=== PATIENT | female | born 1945 | race Caucasian/White ===

== ENCOUNTER 2024-07-12 11:27 | Outpatient (AMB) | payer MEDICARE, SELFPAY ==
[2024-07-12 11:31] VITALS: BP 128/58; PULSE 80; O2SAT 96; BMI 28.7
--- NOTE | 2024-07-12 11:31 | MHC.OFFVIS ---
Vital Signs 07/12/24 11:31 Height 5 ft 2 in Weight 157 lb BMI 28.7 BP 128/58 L Blood Pressure Location Lt brachial Position Sitting Pulse 80 Pulse Source Pulse Oximeter Pulse Oximetry (%) 96 Oxygen Delivery Method Room Air Intake Visit Reasons: Right Lower Quadrant Pain Allergies codeine Allergy (Severe, Verified 07/12/24 11:32) Chest Pain Medication List - Last Reconciled 07/12/24 by Ольга Rick acetaminophen 650 mg PO Q6H PRN albuterol sulfate 2.5 mg inhalation Q6H albuterol sulfate 90 mcg/actuation 2 puffs inhalation Q6H PRN apixaban (Eliquis) 5 mg PO BID atorvastatin 80 mg PO DAILY docusate sodium 50 mg PO DAILY dulaglutide (Trulicity) 0.75 mg subcut QWEEK furosemide 40 mg PO DAILY glipizide 10 mg PO BID hydrocodone-acetaminophen 5-325 mg 1 tab PO BID PRN ipratropium-albuterol 0.5 mg-3 mg(2.5 mg base)/3 mL 3 mL inhalation Q6H PRN L.rhamnosus-B.animalis 3 billion cell ([employer]) caps PO losartan 100 mg PO DAILY magnesium oxide 400 mg PO TID mirtazapine 15 mg PO DAILY nifedipine ER 30 mg PO DAILY omeprazole 20 mg PO DAILY pregabalin 25 mg PO TID propranolol 10 mg PO ONCE PRN HPI Comments Details: Cierra is a very pleasant 79-year-old female who presents to the office today, accompanied by her granddaughter, for evaluation management of her right groin pain Endorses 1.5 years of pain to the right groin associated with pain over right PSIS. Pain occasionally will radiate down to the knee but does not radiate to the foot She states his pain started after cardiology attempted to insert MEMS device through her right femoral artery. 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 She required a second procedure to fix the pseudoaneurysm. After these procedures she was left with residual pain in that area. Pain today is rated as a 6/10, intermittent and worse throughout the day. Pain is exacerbated by standing, sitting, walking She has been taking Tylenol with minimal improvement. Currently on blood thinners therefore she is unable to take nonsteroidal anti-inflammatory medications. Over the last year she has completed physical therapy twice with no improvement. She continues home exercise program. Currently prescribed Lyrica which provides some relief but pain persists. In terms of muscle damage condition is described as aching, tiring, cramping, squeezing, throbbing Pain is negatively impacting patient's enjoyment of life, general activity, mood, normal work, recreational activities, walking Review of Systems Const All systems reviewed & are unremarkable except as noted in HPI and below Physical Exam Vital Signs: Last Vital Signs Pulse 80 07/12/24 11:31 BP 128/58 L 07/12/24 11:31 Pulse Ox 96 07/12/24 11:31 Oxygen Delivery Method Room Air 07/12/24 11:31 BMI result Body Mass Index 28.7 General: awake, alert, oriented. Answers questions appropriately. Fully engaged in examination. Skin: warm, dry, intact HEENT: Normocephalic. Hearing intact. Cardiac: External chest normal in appearance. Respiratory: No cough, audible wheezing or stridor. Abdomen: without gross distension. MS: No obvious swelling or deformities. Able to transition from sit to stand unassisted. Ambulates with bilaterally normal heel strike and toe off Bilateral lower extremity strength 5/5 Tenderness over right PSIS Right SI: [place] positive, thigh thrust positive, SI compression positive Nontender over midline lumbar vertebrae and lower paraspinal muscles SLR negative bilaterally Some discomfort with internal rotation of the right hip Neurological: Oriented to person, place, time and situation. Thought process intact. Ambulates with the use of a Rollator walker Psychiatric: Appropriate mood and affect. Good judgment and insight. Assessment & Plan Assessment & Plan (1) Sacroiliac joint dysfunction of right side: Code(s): M53.3 - Sacrococcygeal disorders, not elsewhere classified Category: Medical Plan X-ray results have been requested from [facility] Continue with Tylenol as needed Patient has exhausted conservative therapy including PT, home exercise program, [id number] medications, prescription medications all without improvement of her symptoms. Discussed options for treatment including diagnostic interventional testing, epidural steroid injections, peripheral nerve stimulation with Sprint, RFA and more permanent neuromodulation. Will schedule for fluoroscopy guided right diagnostic sacroiliac joint injection with local anesthetic. All questions and concerns have been answered and patient agrees with the plan. Follow up after injections and sooner if needed. Coding Level of Care Code New Pt Level 4 (31918) Complex EM visit Add On G2211 Diagnoses Sacroiliac joint dysfunction of right side M53.3
== END 2024-07-12 12:12 | disposition home or self-care (01) ==
LOC: HO.PMC 11:27
PROVIDERS: PCP Family Medicine; Referring Provider Family Medicine; Visit Provider Registered Nurse Emergency
DX: M53.3 Sacrococcygeal disorders, not elsewhere classified (principal)
CPT/HCPCS: 99204; G2211

== ENCOUNTER → 2024-07-12 11:27 | Outpatient (BNVA) | payer MEDICARE, SELFPAY | PROVIDERS: PCP Family Medicine; Referring Provider Family Medicine; Visit Provider Registered Nurse Emergency | DX: M53.3 Sacrococcygeal disorders, not elsewhere classified (principal); Z79.899 Other long term (current) drug therapy | CPT/HCPCS: 99202 ==

== ENCOUNTER 2024-08-01 06:25 | Outpatient (REF) | payer MEDICARE, SELFPAY | END 2024-08-01 06:26 | disposition home or self-care (01) | LOC: CF 06:25 | PROVIDERS: Visit Provider Anesthesiology | DX: M53.3 Sacrococcygeal disorders, not elsewhere classified (principal) | CPT/HCPCS: 27096; J2003; J2795; Q9967 ==

== ENCOUNTER 2024-08-01 12:56 | Outpatient (AMB) | payer MEDICARE, SELFPAY ==
[2024-08-01 12:55] VITALS: BP 103/56; PULSE 71; RESP 14; O2SAT 97
--- NOTE | 2024-08-01 13:02 | A.OFFVIS_ITS ---
Vital Signs 08/01/24 12:55 08/01/24 13:38 BP 103/56 L 104/54 L Blood Pressure Location Lt brachial Lt brachial Position Sitting Sitting Respiration 14 15 Pulse 71 72 Pulse Source Pulse Oximeter Pulse Oximeter Pulse Oximetry (%) 97 94 Oxygen Delivery Method Room Air Room Air Comment Pre-op Post-op Intake Visit Reasons: RIGHT DIAGNOSTIC SIJ INJECTION Allergies codeine Allergy (Severe, Verified 07/12/24 11:32) Chest Pain Physical Exam Vital Signs: Last Vital Signs Pulse 72 08/01/24 13:38 Resp 15 08/01/24 13:38 BP 104/54 L 08/01/24 13:38 Pulse Ox 94 08/01/24 13:38 Oxygen Delivery Method Room Air 08/01/24 13:38 Assessment & Plan Assessment & Plan (1) Sacroiliac joint dysfunction of right side: Code(s): M53.3 - Sacrococcygeal disorders, not elsewhere classified Category: Medical Plan: Diagnostic right sacroiliac joint injection Informed consent was explained thoroughly to the patient.? All questions about benefits and risks for the procedure were answered. Patient came to the operating room and was positioned prone on the operating table with the pillow under the pelvis.? The lower back and buttocks of the patient were prepped with ChloraPrep prepped and draped with sterile utility towels.? Sterilely draped C-arm was brought over the operating field and sq picture of patient's pelvis was demonstrated on the screen.? For the right joint tilting C-arm contralateral to the site of the joint the most posterior portion of the joints was superimposed with anterior silhouette of the joint.? Skin was injected in the projection of the joint slightly medial to the location of the joint with 25 gauge 1/2 inch needle using local lidocaine 2% . After that 22 gauge 3 and 1/2 inch needle was driven to the right joint in tunne l vision fashion.? When needle entered the joint capsule injection of the contrast was performed demonstrating intra-articular and minimally periarticular spread of the contrast.? After that 4 cc. of ropivacaine 0.5% was injected into each joint.? Upon completion of the injections the needles were removed and pressure were applied.? Sterile dressing was applied.? Upon completion of the injection patient was taken outside of the operating room to the recovery room where recovered uneventfully. Plan X-ray results have been requested from [facility] Continue with Tylenol as needed Patient has exhausted conservative therapy including PT, home exercise program, [id number] medications, prescription medications all without improvement of her symptoms. Discussed options for treatment including diagnostic interventional testing, epidural steroid injections, peripheral nerve stimulation with Sprint, RFA and more permanent neuromodulation. Will schedule for fluoroscopy guided right diagnostic sacroiliac joint injection with local anesthetic. All questions and concerns have been answered and patient agrees with the plan. Follow up after injections and sooner if needed. Orders: Orders FL guidance in treatment room 08/01/24 M53.3 - Sacrococcygeal disorders, not elsewhere classified Coding Level of Care Code Procedure Only Diagnoses Sacroiliac joint dysfunction of right side M53.3
[2024-08-01 13:38] VITALS: BP 104/54; PULSE 72; RESP 15; O2SAT 94
== END 2024-08-01 13:37 | disposition home or self-care (01) ==
LOC: HO.PMCPRC 12:56
PROVIDERS: PCP Family Medicine; Visit Provider Anesthesiology
DX: M53.3 Sacrococcygeal disorders, not elsewhere classified (principal)
CPT/HCPCS: 27096

== ENCOUNTER 2024-08-11 12:54 | Outpatient (AMB) | payer MEDICARE, SELFPAY ==
[2024-08-11 13:16] VITALS: BP 110/55; PULSE 83; O2SAT 98; BMI 28.2
--- NOTE | 2024-08-11 13:16 | A.OFFVIS_ITS ---
Vital Signs 08/11/24 13:16 Height 5 ft 2 in Weight 154 lb BMI 28.2 BP 110/55 L Blood Pressure Location Lt brachial Position Sitting Pulse 83 Pulse Source Pulse Oximeter Pulse Oximetry (%) 98 Oxygen Delivery Method Room Air Intake Visit Reasons: RIGHT DIAGNOSTIC SIJ INJECTION Intake Note: Pain today 0/10 Email Marketer Required: No Accompanied by: Self / Same As Patient Allergies codeine Allergy (Severe, Verified 08/11/24 13:16) Chest Pain HPI Comments Details: Patient presents back to the office today for follow-up, 10 days status post right diagnostic sacroiliac joint injection Patient reports continued 100% pain relief since the injection with improvement in functional mobility Denies any untoward effects Would like to proceed with therapeutic injection. She is requesting Ativan prior to the procedure as she states that the diagnostic injection was very uncomfortable. Prior: Cierra is a very pleasant 79-year-old female who presents to the office today, accompanied by her granddaughter, for evaluation management of her right groin pain Endorses 1.5 years of pain to the right groin associated with pain over right PSIS. Pain occasionally will radiate down to the knee but does not radiate to the foot She states his pain started after cardiology attempted to insert MEMS device through her right femoral artery. 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 She required a second procedure to fix the pseudoaneurysm. After these procedures she was left with residual pain in that area. Pain today is rated as a 6/10, intermittent and worse throughout the day. Pain is exacerbated by standing, sitting, walking She has been taking Tylenol with minimal improvement. Currently on blood thinners therefore she is unable to take nonsteroidal anti-inflammatory medications. Over the last year she has completed physical therapy twice with no improvement. She continues home exercise program. Currently prescribed Lyrica which provides some relief but pain persists. In terms of muscle damage condition is described as aching, tiring, cramping, squeezing, throbbing Pain is negatively impacting patient's enjoyment of life, general activity, mood, normal work, recreational activities, walking Review of Systems Const All systems reviewed & are unremarkable except as noted in HPI and below Physical Exam Vital Signs: Last Vital Signs Pulse 83 08/11/24 13:16 BP 110/55 L 12/06/24 13:16 Pulse Ox 98 08/11/24 13:16 Oxygen Delivery Method Room Air 08/11/24 13:16 BMI result Body Mass Index 28.2 General: awake, alert, oriented. Answers questions appropriately. Fully engaged in examination. Skin: warm, dry, intact HEENT: Normocephalic. Hearing intact. Cardiac: External chest normal in appearance. Respiratory: No cough, audible wheezing or stridor. Abdomen: without gross distension. MS: No obvious swelling or deformities. Able to transition from sit to stand unassisted. Ambulates with bilaterally normal heel strike and toe off Neurological: Oriented to person, place, time and situation. Thought process intact. Ambulates with the use of a Rollator walker Psychiatric: Appropriate mood and affect. Good judgment and insight. Assessment & Plan Assessment & Plan (1) Sacroiliac joint dysfunction of right side: Code(s): M53.3 - Sacrococcygeal disorders, not elsewhere classified Category: Medical Plan Patient presents the office today for follow-up, 10 days status post diagnostic right sacroiliac joint injection She reports continued 100% pain relief with improvement in functional ability since the injection Patient has exhausted conservative therapy including PT, home exercise program, [id number] medications, prescription medications all without improvement of her symptoms. Will schedule for fluoroscopy guided right therapeutic sacroiliac joint injection with local anesthetic. Patient would like Ativan for this procedure, this will be sent to her pharmacy with instructions to take 30 minutes prior to arrival. All questions and concerns have been answered and patient agrees with the plan. Follow up after injection, sooner if needed. Coding Level of Care Code Est Pt Level 3 (49712) Complex EM visit Add On G2211 Diagnoses Sacroiliac joint dysfunction of right side M53.3
--- OUTSIDE RECORDS SUMMARY | 2024-08-16 09:00 | XMS_ITS | Clinical Summary ---
Author Organization Unknown Care Team Providers Care Flatbed Driver Name Role Phone DAWIT MADDEN MD, ADILIA Unavailable U thomas SONG PT, STEVE Unavailable Unavailable CELSO JUDGE'S CLERK, STEVE Unavailable Unavailable Payers Payer Name Policy Type Policy Number Effective Date Expira tion Date MEDICARE.[facility].PDGM [id number] Problems Condition Name Condition Details Condition Category Status Onset Date Resolution Date Last Treatment Date Treating Clinician Comments POLYOSTEOART HRITIS, UNSPECIFIED Active 04-14 00:00: 00 ESSENTIAL (PRIMARY) HYPERTENSION Active 04-14 00:00: 00 CHRONIC OBSTRUCTIVE PULMONARY DISEASE, UNSPECIFIED Active 04-14 00:00: 00 ANXIETY DISORDER, UNSPECIFIED Active 04-14 00:00: 00 MAJOR DEPRESSIVE DISORDER, RECURRENT, UNSPECIFIED Active 04-14 00:00: 00 UNSPECIFIED ATRIAL FIBRILLATION Active 04-14 00:00: 00 PULMONARY HYPERTENSION , UNSPECIFIED Active 04-14 00:00: 00 POLYMYALGIA RHEUMATICA Active 04-14 00:00: 00 AGE-RELATED OSTEOPOROSIS W/O CURRENT PATHOLOGICAL FRACTURE Active 04-14 00:00: 00 HYPOMAGNESEM IA Active 04-14 00:00: 00 HYPERLIPIDEM IA, UNSPECIFIED Active 04-14 00:00: 00 GASTRO-ESOPH AGEAL REFLUX DISEASE WITHOUT ESOPHAGITIS Active 04-14 00:00: 00 HISTORY OF FALLING Active 04-14 00:00: 00 PRISON (CURRENT) USE OF ORAL HYPOGLYCEMIC DRUGS Active 04-14 00:00: 00 BOOK AGENT (CURRENT) USE OF ANTICOAGULAN TS Active 04-14 00:00: 00 LNG TRM (CRNT) USE INJECTABLE NON-INSULIN ANTIDIABETIC DRUGS Active 04-14 00:00: 00 PERSONAL HISTORY OF MALIGNANT NEOPLASM OF LARGE INTESTINE Active 04-14 00:00: 00 ACQUIRED ABSENCE OF OTHER SPECIFIED PARTS OF DIGESTIVE TRACT Active 04-14 00:00: 00 Allergies, Adverse Reactions, Alerts Allergy Name Allergy Type Status Severity Reaction(s) Onset Date Inactive Date Treating Clinician Comments TYLENOL-C ODEINE #3 Propensity to adverse reactions Active 2024-04 21:21:2 7 Medications Ordered Medication Name Filled Medication Name Start Date Stop Date Current Medication? Ordering Clinician Indication Dosage Frequency Signature (SIG) Comments Components OneTouch Ultra Test strips 04-05 00:00: 00 Yes [id number] DIABETES Per instruc tions TWICE DAILY DIRECTED Per instructio ns TWICE DAILY DIRECTED (route: miscellane ous) Med Classific ation: Medical Supplies and Durable Medical Equipment (DME) OneTouch UltraSoft 2 Lancet 30 gauge 04-05 00:00: 00 Yes [id number] DIABETES Per instruc tions TO TEST BLOOD SUGAR TWICE DAILY Per instructio ns TO TEST BLOOD SUGAR TWICE DAILY (route: miscellane ous) Med Classific ation: Medical Supplies and Durable Medical Equipment (DME) hydrocodone 5 mg-acetamin ophen 325 mg tablet 04-01 00:00: 00 Yes [id number] PAIN Per instruc tions TWICE DAILY FOR 14 DAYS Per instructio ns TWICE DAILY FOR 14 DAYS (route: oral) Med Classific ation: Analgesic , Anti-infl ammatory or Antipyret ic atorvastati n 80 mg tablet 03-30 00:00: 00 Yes [id number] HLD Per instruc tions EVERY DAY Per instructio ns EVERY DAY (route: oral) Med Classific ation: Cardiovas cular Therapy Agents diltiazem CD 300 mg capsule,ext ended release 24 hr 03-30 00:00: 00 Yes [id number] HR CONTROL Per instruc tions EVERY DAY Per instructio ns EVERY DAY (route: oral) Med Classific ation: Cardiovas cular Therapy Agents magnesium oxide 400 mg (241.3 mg magnesium) tablet 03-27 00:00: 00 Yes [id number] SUPPLEMENT Per instruc tions THREE TIMES DAILY Per instructio ns THREE TIMES DAILY (route: oral) Med Classific ation: Electroly te Balance-N utritiona l Products propranolol 10 mg tablet 03-27 00:00: 00 Yes [id number] PANIC ATTACKS Per instruc tions EVERY 8 HOURS NEEDED Per instructio ns EVERY 8 HOURS NEEDED (route: oral) Med Classific ation: Cardiovas cular Therapy Agents mirtazapine 15 mg tablet 03-21 00:00: 00 Yes [id number] DEPRESSION Per instruc tions EVERY DAY Per instructio ns EVERY DAY (route: oral) Med Classific ation: Central Nervous System Agents Trulicity 1.5 mg/0.5 mL subcutaneou s pen injector 03-21 00:00: 00 Yes [id number] DIABETES Per instruc tions EVERY WEEK Per instructio ns EVERY WEEK (route: subcutaneo us) Med Classific ation: Endocrine albuterol sulfate 2.5 mg/3 mL (0.083 %) solution for nebulizatio n 04-24 00:00: 00 Yes [id number] COPD 3 mL EVERY 6 HOURS 3 mL EVERY 6 HOURS (route: inhalation ) Med Classific ation: Respirato ry Therapy Agents albuterol sulfate HFA 90 mcg/actuati on aerosol inhaler 04-24 00:00: 00 Yes [id number] COPD 2 puff EVERY 4 HOURS 2 puff EVERY 4 HOURS (route: inhalation ) Med Classific ation: Respirato ry Therapy Agents docusate sodium 50 mg capsule 04-24 00:00: 00 Yes [id number] CONSTIPATIO N 1 capsule EVERY OTHER DAY 1 capsule EVERY OTHER DAY (route: oral) Med Classific ation: Gastroint estinal Therapy Agents Eliquis 5 mg tablet 04-24 00:00: 00 Yes [id number] ANTICOAGULA NT 1 tablet 2 TIMES DAILY 1 tablet 2 TIMES DAILY (route: oral) Med Classific ation: Hematolog ical Agents furosemide 40 mg tablet 04-24 00:00: 00 Yes [id number] DIURETIC 1 tablet DAILY 1 tablet DAILY (route: oral) Med Classific ation: Cardiovas cular Therapy Agents glipizide 10 mg tablet 04-24 00:00: 00 Yes [id number] DIABETES 1 tablet 2 TIMES DAILY 1 tablet 2 TIMES DAILY (route: oral) Med Classific ation: Endocrine ipratropium 0.5 mg-albutero l 3 mg (2.5 mg base)/3 mL nebulizatio n soln 04-24 00:00: 00 Yes [id number] COPD 3 mL 4 TIMES DAILY 3 mL 4 TIMES DAILY (route: inhalation ) Med Classific ation: Respirato ry Therapy Agents losartan 100 mg tablet 04-24 00:00: 00 Yes [id number] BLOOD PRESSURE 1 tablet DAILY 1 tablet DAILY (route: oral) Med Classific ation: Cardiovas cular Therapy Agents omeprazole 20 mg capsule,del ayed release 04-24 00:00: 00 Yes [id number] GERD 1 capsule DAILY 1 capsule DAILY (route: oral) Med Classific ation: Gastroint estinal Therapy Agents Schmid' Colon Health 3 billion cell capsule 04-24 00:00: 00 Yes [id number] GUT HEALTH 1 capsule DAILY 1 capsule DAILY (route: oral) Med Classific ation: Gastroint estinal Therapy Agents Vitamin D2 1,250 mcg (50,000 unit) capsule 04-24 00:00: 00 Yes [id number] SUPPLEMENT 1 capsule WEEKLY 1 capsule WEEKLY (route: oral) Med Classific ation: Electroly te Balance-N utritiona l Products pregabalin 25 mg capsule 2023-09 00:00: 00 Yes [id number] NERVE PAIN 1 capsule 3 TIMES DAILY 1 capsule 3 TIMES DAILY (route: oral) Med Classific ation: Central Nervous System Agents Vital Signs Vital Name Observation Time Observation Value Commen ts Temperature 2024-08-02 11:53:00.000 98.1 [degF] Temperature 2024-07-21 13:16:00.000 97.4 [degF] Temperature 2024-07-11 15:43:00.000 98.1 [degF] Temperature 2024-06-30 19:58:00.000 98.1 [degF] Pulse 2024-08-02 11:53:00.000 72 /min Pulse 2024-07-21 13:16:00.000 79 /min Pulse 2024-07-11 15:43:00.000 98 /min Pulse 2024-06-30 19:58:00.000 78 /min O2 Saturation (%) 2024-08-02 11:53:00.000 95 % O2 Saturation (%) 2024-07-21 13:16:00.000 96 % O2 Saturation (%) 2024-07-11 15:43:00.000 96 % O2 Saturation (%) 2024-06-30 19:58:00.000 97 % Respirations 2024-08-02 11:53:00.000 16 /min Respirations 2024-07-21 13:16:00.000 18 /min Respirations 2024-07-11 15:43:00.000 16 /min Respirations 2024-06-30 19:58:00.000 17 /min Systolic Blood Pressure 2024-08-02 11:53:00.000 132 mm [Hg] Systolic Blood Pressure 2024-07-21 13:16:00.000 122 mm [Hg] Systolic Blood Pressure 2024-07-11 15:43:00.000 102 mm [Hg] Systolic Blood Pressure 2024-06-30 19:58:00.000 124 mm [Hg] Diastolic Blood Pressure 2024-08-02 11:53:00.000 72 mm [Hg] Diastolic Blood Pressure 2024-07-21 13:16:00.000 66 mm [Hg] Diastolic Blood Pressure 2024-07-11 15:43:00.000 64 mm [Hg] Diastolic Blood Pressure 2024-06-30 19:58:00.000 78 mm [Hg] Plan of Treatment Planned Activity Planned Date Details Comments Future Scheduled Test AGENCY MAY PERFORM A RESUMPTION OF CARE VISIT FOLLOWING ANY HOSPITAL ADMISSION. PT TO EVALUATE, OBSERVE / ASSESS, AND MONITOR, JUDGE'S CLERK TO OBSERVE AND MONITOR, PROVIDE SKILLED THERAPEUTIC INTERVENTION, ACTIVITY, EDUCATION, AND TRAINING TO ADDRESS; [code = AGENCY MAY PERFORM A RESUMPTION OF CARE VISIT FOLLOWING ANY HOSPITAL ADMISSION. PT TO EVALUATE, OBSERVE / ASSESS, AND MONITOR, JUDGE'S CLERK TO OBSERVE AND MONITOR, PROVIDE SKILLED THERAPEUTIC INTERVENTION, ACTIVITY, EDUCATION, AND TRAINING TO ADDRESS;] Future Scheduled Test PT/JUDGE'S CLERK TO PROVIDE GAIT TRAINING FOR IMPROVED MOBILITY AND /OR TO NORMALIZE GAIT PATTERN [code = PT/JUDGE'S CLERK TO PROVIDE GAIT TRAINING FOR IMPROVED MOBILITY AND /OR TO NORMALIZE GAIT PATTERN] Future Scheduled Test NEUROMUSCU LAR RE-EDUCATION / BALANCE / POSTURAL CONTROL (PT) [code = NEUROMUSCULAR RE-EDUCATION / BALANCE / POSTURAL CONTROL (PT)] Future Scheduled Test THERAPEUTI C EXERCISES AND ESTABLISHING A HOME EXERCISE PROGRAM (PT/JUDGE'S CLERK) [code = THERAPEUTIC EXERCISES AND ESTABLISHING A HOME EXERCISE PROGRAM (PT/JUDGE'S CLERK)] Future Scheduled Test PT/JUDGE'S CLERK TO IDENTIFY FALL RISK FACTORS; EDUCATE THE PATIENT/CAREGIVER ON WAYS TO REDUCE FALL RISK FACTORS AND ESTABLISH HOME EXERCISE PROGRAM TO MINIMIZE FALL RISK. MAY TEACH THE PATIENT FLOOR RECOVERY WHEN CLINICALLY APPROPRIATE [code = PT/JUDGE'S CLERK TO IDENTIFY FALL RISK FACTORS; EDUCATE THE PATIENT/CAREGIVER ON WAYS TO REDUCE FALL RISK FACTORS AND ESTABLISH HOME EXERCISE PROGRAM TO MINIMIZE FALL RISK. MAY TEACH THE PATIENT FLOOR RECOVERY WHEN CLINICALLY APPROPRIATE] Future Scheduled Test PT / JUDGE'S CLERK T O EDUCATE ON DIABETES SELF- MANAGEMENT [code = PT / JUDGE'S CLERK TO EDUCATE ON DIABETES SELF- MANAGEMENT] Future Scheduled Test PT/JUDGE'S CLERK TO EDUCATE ON ARTHRITIS SELF-MANAGEMENT [code = PT/JUDGE'S CLERK TO EDUCATE ON ARTHRITIS SELF-MANAGEMENT ] Future Scheduled Test PT TO ASSE SS / JUDGE'S CLERK TO MONITOR FOR AND REPORT EARLY SIGNS OF ANTICOAGULANT TOXICITY TO THE PHYSICIAN AND/OR THE RN CLINICAL HEALTH INFORMATION SPECIALIST FOR PHYSICIAN NOTIFICATION AND TO PROVIDE PATIENT/CAREGIVER EDUCATION ON ANTICOAGULANT THERAPY [code = PT TO ASSESS / JUDGE'S CLERK TO MONITOR FOR AND REPORT EARLY SIGNS OF ANTICOAGULANT TOXICITY TO THE PHYSICIAN AND/OR THE RN CLINICAL HEALTH INFORMATION SPECIALIST FOR PHYSICIAN NOTIFICATION AND TO PROVIDE PATIENT/CAREGIVER EDUCATION ON ANTICOAGULANT THERAPY] Future Scheduled Test PT / JUDGE'S CLERK M AY EDUCATE ON PAIN MANAGEMENT CLINICALLY INDICATED, INCLUDING NON-PHARMACOLOGICAL PAIN REDUCTION TECHNIQUES [code = PT / JUDGE'S CLERK MAY EDUCATE ON PAIN MANAGEMENT CLINICALLY INDICATED, INCLUDING NON-PHARMACOLOGICAL PAIN REDUCTION TECHNIQUES ] Future Scheduled Test PT / JUDGE'S CLERK T O INSTRUCT PATIENT/CAREGIVER ON RISK FOR HOSPITALIZATION/EMERGENCY ROOM VISITS, TEACH SIGNS AND SYMPTOMS THAT PUT PATIENT AT RISK, WHEN TO NOTIFY NURSE/PHYSICIAN OF COMPLICATIONS/DECLINE, AND WHEN TO CALL 911. [code = PT / JUDGE'S CLERK TO INSTRUCT PATIENT/CAREGIVER ON RISK FOR HOSPITALIZATION/EMERGENCY ROOM VISITS, TEACH SIGNS AND SYMPTOMS THAT PUT PATIENT AT RISK, WHEN TO NOTIFY NURSE/PHYSICIAN OF COMPLICATIONS/DECLINE, AND WHEN TO CALL 911.] Goal 2024-06-20 Patient Goal - G ET STRENGTH BACK AND WALK SAFER Goal Patient Goal - G ET STRENGTH BACK AND WALK SAFER Goal Provider Goal - Goal Provider Goal - PT LTG: PATIENT WILL DEMONSTRATE IMPROVED AMBULATION FROM SBA TO INDEPENDENT WITH LRAD WITHIN 9 WEEKS Goal Provider Goal - PT LTG: PATIENT WILL DEMONSTRATE REDUCED FALL RISK EVIDENCED BY TUG TEST (CUT SCORE >11 SECONDS INDICATES INCREASED FALL RISK) IMPROVING FROM 32 SECONDS TO 15 SECONDS WITHIN 9 WEEKS Goal Provider Goal - PT STG: PATIENT WILL DEMONSTRATE INDEPENDENCE WITH BLE HEP WITHIN 5 WEEKS PT LTG: PATIENT WILL DEMONSTRATE INCREASED STRENGTH OF BLE FROM 3+/5 TO 4/5 WITHIN 9 WEEKS Goal Provider Goal - PT LTG: PATIENT/CAREGIVER WILL DEMONSTRATE ADHERENCE TO FALL REDUCTION SELF-MANAGEMENT AND REDUCING FALL RISK FACTORS TO MINIMIZE FALL RISK BY END OF EPISODE Goal Provider Goal - PATIENT/CAREGIVER WILL BE ABLE TO IDENTIFY SIGNS OF HYPER- AND HYPOGLYCEMIA AND VERBALIZE HOW TO MANAGE SYMPTOMS. Goal Provider Goal - PT GOAL: PATIENT/CAREGIVER WILL BE ABLE TO VERBALIZE UNDERSTANDING OF ARTHRITIS EDUCATION, SIGNS/SYMPTOMS TO REPORT, WELL SELF-MANAGEMENT AND LIFE-STYLE CHANGES TO IMPROVE QUALITY OF LIFE AND REDUCE CAREGIVER BURDEN BY END OF EPISODE. Goal Provider Goal - PT LTG: PATIENT WILL NOT EXHIBIT SIGNS AND SYMPTOMS OF ANTICOAGULANT TOXICITY THROUGHOUT EPISODE OF CARE. Goal Provider Goal - PT GOAL: PATIENT WILL DEMONSTRATE UNDERSTANDING OF PAIN MANAGEMENT TECHNIQUES EVIDENCED BY REDUCED PAIN Goal Provider Goal - PT GOAL: PATIENT/CAREGIVER WILL VERBALIZE UNDERSTANDING OF SIGNS AND SYMPTOMS THAT PUT THE PATIENT AT RISK FOR HOSPITALIZATION /EMERGENCY ROOM VISITS, WHEN TO NOTIFY NURSE/PHYSICIAN OF COMPLICATIONS/DECLINE AND WHEN TO CALL 911. Encounters Start Date/Time End Date/Time Encounter Type Admission Type Attending [facility] Care Department Encounter ID Discharge Date Discharge Status Discharge Condition Discharge Reason Percent Goals Met 2024-04-24 00:00:00 2024-08-21 00:00:00 Outpatient [facility] [place] [facility] ED [id number]
== END 2024-08-11 13:55 | disposition home or self-care (01) ==
PROVIDERS: PCP Family Medicine; Visit Provider Registered Nurse Emergency
DX: M53.3 Sacrococcygeal disorders, not elsewhere classified (principal)
CPT/HCPCS: 99213; G2211

== ENCOUNTER → 2024-08-11 12:54 | Outpatient (BNVA) | payer MEDICARE, SELFPAY | PROVIDERS: PCP Family Medicine; Visit Provider Registered Nurse Emergency | DX: M53.3 Sacrococcygeal disorders, not elsewhere classified (principal) | CPT/HCPCS: 99212 ==